=== PATIENT | female | born 1945 ===

== ENCOUNTER 2019-03-13 10:33 | Outpatient (CLI) | payer OTHER ==
[~2019-03-13] VITALS: Ht 167.6 cm; Wt 93.4 kg
[2019-03-13] MEDS ORDERED: AYR SALINE NA14.1 GM NASAL (11:56)
[2019-03-13] MEDS ORDERED: AFRIN15 ML NASAL (11:56)
== END 2019-03-13 16:03 | disposition home or self-care (01) ==
LOC: OFIC 805 10:33
DX: J31.0 Chronic rhinitis (principal); R04.0 Epistaxis; J34.3 Hypertrophy of nasal turbinates; J34.2 Deviated nasal septum; D55.0 Anemia due to glucose-6-phosphate dehydrogenase [G6PD] deficiency; E66.8 Other obesity